=== PATIENT | male | born 1990 | race African-American/Black ===

== ENCOUNTER 2020-08-16 10:48 | Emergency (ER) | payer OTHER ==
[~2020-08-16] VITALS: Ht 165.1 cm; Wt 63.5 kg
[2020-08-16] MEDS ORDERED: BACTRIM DS TAB1 EAC1 PO (11:15)
[2020-08-16 11:40] VITALS: BP 138/83
== END 2020-08-16 11:40 | disposition home or self-care (01) ==
LOC: M.ERS 10:48
DX: L02.212 Cutaneous abscess of back [any part, except buttock and flank] (principal)